=== PATIENT | female | born 1990 | race Hispanic/Latino ===

== ENCOUNTER 2020-02-17 06:06 | Emergency (ER) | payer OTHER ==
[2020-02-17] MEDS ORDERED: ACYCLOVIR 200 MG CAPSULE ONE (06:42)
[2020-02-17] MEDS ORDERED: PREDNISONE 20 MG TABLET ONE (06:42)
== END 2020-02-17 07:00 | disposition home or self-care (01) ==
LOC: EDH 06:06
DX: B02.9 Zoster without complications (principal)